=== PATIENT | female | born 1985 | race Two or more races ===

== ENCOUNTER 2021-10-20 20:41 | Observation (INO) | payer OTHER ==
[~2021-10-20] VITALS: Ht 154.9 cm; Wt 89.4 kg
== END 2021-10-20 23:25 | disposition home or self-care (01) ==
LOC: SPU 20:46
PROVIDERS: ADMIT Specialist; ATTEND Specialist
DX: O36.8120 Decreased fetal movements, second trimester, not applicable or unspecified (principal); Z3A.27 27 weeks gestation of pregnancy; Z91.040 Latex allergy status
CPT/HCPCS: 76805; G0378

== ENCOUNTER 2021-10-22 14:57 | Inpatient (IN) | payer OTHER ==
[~2021-10-22] VITALS: Ht 154.9 cm; Wt 84.8 kg
[2021-10-22] MEDS ORDERED: DIPHENOXYLATE HCL/ATROP SULF 2.5 MG TAB PO ONE (20:15)
[2021-10-22] MEDS ORDERED: MISOPROSTOL 100 MCG TABLET (CYTOTEC) VG PRN (20:15)
[2021-10-22] MEDS ORDERED: chlorproMAZINE HCL 50 MG/ 2 ML AMP IM SCH (23:00)
[2021-10-22] MEDS ORDERED: FLU VACC QS2021-22(6MOS UP)/PF 0.5 ML/SYR SYRINGE I.M. PRN (23:15)
[2021-10-22] MEDS: LR 1,000 ML IV SCH (23:25)
[2021-10-22 23:50] VITALS: BP_SYST 130
[2021-10-23 00:50] LABS: BASOPHILS # (AUTO) 0.1 K/uL (0.0-0.2); BASOPHILS % (AUTO) 0.5 % (0.0-2.0); EOSINOPHILS # (AUTO) 0.1 K/uL (0.0-0.4); EOSINOPHILS % (AUTO) 0.9 % (0.0-4.0); HEMATOCRIT 39.4 % (36-48); HEMOGLOBIN 13.1 g/dL (12.0-16.0); LYMPHOCYTES # (AUTO) 3.3 K/uL (1.0-5.5); LYMPHOCYTES % (AUTO) 23.5 % (20.5-51.5); MEAN CORPUSCULAR HEMOGLOBIN 29 pg (27-31); MEAN CORPUSCULAR HGB CONC 33 % (32-36); MEAN CORPUSCULAR VOLUME 89 fL (79.0-98.0); MONOCYTES # (AUTO) 0.5 K/uL (0.0-1.0); MONOCYTES % (AUTO) 3.7 % (1.7-9.3); NEUTROPHILS # (AUTO) 10.1 K/uL (1.8-7.7); NEUTROPHILS % (AUTO) 71.4 % (40.0-70.0); PLATELET COUNT (AUTO) 315 K/uL (130-430); RED BLOOD CELL COUNT(AUTO) 4.45 MIL/uL (4.2-6.2); RED CELL DISTRIBUTION WIDTH 12.8 % (9.0-15.0); WHITE BLOOD COUNT (AUTO) 14.2 K/uL (4.8-10.8)
[2021-10-23 00:55] LABS: ALBUMIN 2.7 g/dL (3.4-4.8); CALCIUM 8.6 mg/dL (8.4-11.0); CREATININE 0.57 mg/dL (0.55-1.30); POTASSIUM 3.7 mmol/L (3.5-5.1); TOTAL BILIRUBIN 0.3 mg/dL (0.0-1.0)
[2021-10-23] MEDS: MISOPROSTOL 100 MCG TABLET (CYTOTEC) VG PRN ×2 (01:34→05:29)
[2021-10-23] MEDS: HYDROmorphone 2 MG/ML VIAL IVP PRN ×4 (02:07→09:28)
[2021-10-23] MEDS ORDERED: ONDANSETRON HCL 4 MG/2 ML VIAL IVP PRN (02:30)
[2021-10-23] MEDS: LR 1,000 ML IV SCH (06:30)
[2021-10-23] MEDS ORDERED: OXYTOCIN/0.9 % SODIUM CHLORIDE 1,000 ML IV ONE ×2 (09:34→10:30)
[2021-10-23] MEDS ORDERED: METHYLERGONOVINE MALEATE 0.2 MG TABLET PO PRN (10:30)
[2021-10-23] MEDS ORDERED: LANOLIN 7 GM OINT. TP PRN (10:30)
[2021-10-23] MEDS ORDERED: HYDROCORTISONE 0.5% CREAM 28.4 GM CREAM.GM. TP PRN (10:30)
[2021-10-23] MEDS ORDERED: ANUSOL 1 EA SUPP.RECT (PREPARATION H) RC PRN (10:30)
[2021-10-23] MEDS ORDERED: DERMOPLAST SPRAY TP PRN (10:30)
[2021-10-23] MEDS ORDERED: WITCH HAZEL LEAF 1 MED.PAD MED.PAD TP PRN (10:30)
[2021-10-23] MEDS ORDERED: NALOXONE HCL 0.4 MG/ML AMP (NARCAN) IVP PRN (10:30)
[2021-10-23] MEDS ORDERED: OXYCODONE/ACETAMINOPHEN 5-325 TABLET PO PRN ×2 (10:30)
[2021-10-23] MEDS ORDERED: RHO(D) IMMUNE GLOBULIN/MALTOSE 1500 UNITS/1.3 ML (WINHRO) IM PRN (10:30)
[2021-10-23] MEDS ORDERED: OXYTOCIN/0.9 % SODIUM CHLORIDE 1,000 ML IV SCH (10:30)
[2021-10-23] MEDS ORDERED: MEASLES,MUMPS&RUBELLA VACC/PF 12500 UNIT/0.5 ML VIAL SUBQ PRN (10:30)
[2021-10-23] MEDS ORDERED: DIPH-TET-PERTUS Vaccine 0.5 ML VIAL (ADACEL) I.M. PRN (10:30)
[2021-10-23] MEDS ORDERED: HYDROcodone/ACETAMIN 5-325 MG TAB (NORCO/ VICODIN) PO PRN (10:30)
--- NOTE | 2021-10-23 10:30 | NUR ---
CM: RECEIVED CALL THAT BABY GIRL OF PT WAS STILLBORN, WHEN I WENT TO [facility] PT[facility]S ROOM, I FOUND BOTH MOTHER AND FATHER OF STILLBORN BABY GIRL, FATHER AT BEDSIDE, MOTHER IN BED STRICKEN WITH GRIEF, AFTER I TRIED TO CONSOLED THEM, I OFFERED INFORMATION ON SUPPORTIVE CARE THROUGH DIFFERENT ORGANIZATIONS IN THE COMMUNITY AND ON LINE, ALL MATERIAL WAS PRESENTED IN WRITTEN FORM, NOTIFIED NURSE ABRAN AVILA OB OF ENCOUNTER WITH PATIENT.
[2021-10-23] MEDS ORDERED: IBUPROFEN 600 MG TABLET PO SCH (12:00)
[2021-10-23] MEDS ORDERED: SENNOSIDES/DOCUSATE SODIUM 1 TAB TABLET(SENOKOT-S) PO SCH (21:00)
[2021-10-23] MEDS ORDERED: TEMAZEPAM 15 MG CAPSULE PO PRN (21:00)
[2021-10-24] MEDS ORDERED: DOCUSATE SODIUM 100 MG CAPSULE PO SCH (09:00)
== END 2021-10-23 16:40 | disposition home or self-care (01) | DRG 807 ==
LOC: SPU 21:03
PROVIDERS: ADMIT Specialist; ATTEND Specialist
PROC: 10E0XZZ Delivery of Products of Conception, External Approach (ICD-10-PCS; principal; 2021-10-23)
PROC: 3E0P7VZ Introduction of Hormone into Female Reproductive, Via Natural or Artificial Opening (ICD-10-PCS; 2021-10-23)
DX: O36.4XX0 Maternal care for intrauterine death, not applicable or unspecified (principal); Z37.1 Single stillbirth; Z3A.27 27 weeks gestation of pregnancy; Z20.822 Contact with and (suspected) exposure to COVID-19
CPT/HCPCS: 36415; 80053; 85025; 86592; 86886; 86900; 86901; 88307; J1170; J2590; J3230

== ENCOUNTER 2022-08-31 23:21 | Emergency (ER) | payer OTHER ==
[~2022-08-31] VITALS: Ht 157.5 cm; Wt 77.6 kg
[2022-08-31 23:24] VITALS: BP_SYST 118
--- NOTE | 2022-08-31 23:31 | NUR ---
PT HERE C/O PASSING BLOOD CLOTS AROUND 1999 S/P NSD A WK AGO. PT DENIES ABD PAIN, DENIES DIZZINESS, DENIES OTHER SYMPTOMS. PER PT SHE IS CONCERNS THAT SHE IS PASSING LARGE CLOTS TONIGHT. PMH;GESTATIONLA DM PT [id number], NO SOB NOTED AND NAD. PENDING MD AGUAYO
--- NOTE | 2022-09-01 00:30 | NUR ---
Patient left without being seen.
== END 2022-09-01 00:30 | disposition left against medical advice (07) ==
LOC: SED 23:21
DX: N93.9 Abnormal uterine and vaginal bleeding, unspecified (principal); Z53.21 Procedure and treatment not carried out due to patient leaving prior to being seen by health care provider